=== PATIENT | female | born 1935 | race Caucasian/White ===

== ENCOUNTER 2018-09-30 08:11 | Observation (INO) | payer MEDICARE ==
[~2018-09-30] VITALS: Ht 157.5 cm; Wt 60.0 kg
[~2018-09-30 08:11] MED LIST: PROP10TA10 PO
[2018-09-30 09:20] LABS: BASOPHILS # (AUTO) 0.1 X10'3 (0-0.2); BASOPHILS % (AUTO) 1.2 % (0-1); EOSINOPHILS # (AUTO) 0.4 X10'3 (0-0.9); EOSINOPHILS % (AUTO) 5.2 % (0-6); HEMATOCRIT 42.4 % (35.0-45.0); LYMPHOCYTES # (AUTO) 1.3 X10'3 (1.1-4.8); LYMPHOCYTES % (AUTO) 19.1 % (21-51); MEAN CORPUSCULAR HEMOGLOBIN 29.3 PG (27.0-31.0); MEAN CORPUSCULAR HGB CONC 33.1 g/dL (33.0-36.5); MEAN CORPUSCULAR VOLUME 88.5 FL (78-98); MEAN PLATELET VOLUME 7.3 FL (7.4-10.4); MONOCYTES # (AUTO) 0.8 X10'3 (0-0.9); MONOCYTES % (AUTO) 12.2 % (2-12); NEUTROPHILS # (AUTO) 4.2 X10'3 (1.8-7.7); NEUTROPHILS % (AUTO) 62.3 % (42-75); PLATELET COUNT 299 X10'3 (140-440); RED BLOOD COUNT 4.79 X10'6 (4.20-5.60); RED CELL DISTRIBUTION WIDTH 13.8 % (11.5-14.5); WHITE BLOOD COUNT 6.8 X10'3 (4.5-11.0)
[2018-09-30 09:29] LABS: CLARITY,URINE CLEAR (Clear); COLOR,URINE STRAW (Yellow); GLUCOSE, URINE NEGATIVE (Neg); KETONES,URINE NEGATIVE (Neg); LEUKOCYTE ESTERASE ,URINE NEGATIVE (Neg); NITRITES, URINE NEGATIVE (Neg); OCCULT BLOOD,URINE TRACE-LYSED (Neg); PROTEIN,URINE NEGATIVE (Neg); UROBILINOGEN,URINE 0.2 E.U/dL (0.2-1.0)
[2018-09-30 09:29] LABS: ALANINE AMINOTRANSFERASE 20 U/L (12-78); ALBUMIN 3.7 G/DL (3.4-5.0); ALBUMIN/GLOBULIN RATIO 0.9 (1.1-1.5); ANION GAP 3 (8-16); ASPARTATE AMINO TRANSFERASE 17 U/L (10-37); BILIRUBIN,TOTAL 0.5 MG/DL (0.1-1.0); BLOOD UREA NITROGEN 10 MG/DL (7-18); CALCIUM 9.2 MG/DL (8.5-10.1); CHLORIDE 104 MMOL/L (99-107); CREATININE 0.91 MG/DL (0.40-0.90); GLUCOSE 101 MG/DL (70-104); POTASSIUM 3.6 MMOL/L (3.5-5.1); SODIUM 138 MMOL/L (135-145); TOTAL CARBON DIOXIDE 30.6 MMOL/L (24-32); TOTAL PROTEIN 7.8 G/DL (6.4-8.2); eGFR 59 ML/MIN
[2018-09-30 09:30] LABS: ALKALINE PHOSPHATASE 153 IU/L (46-116)
[2018-09-30 09:30] LABS: UA COLLECTION TYPE CLN CATCH MIDSTREAM
[2018-09-30 09:38] LABS: BACTERIA,URINE 1+ /HPF (Neg); SQUAMOUS EPITHELIAL CELL,UR FEW /LPF (FEW); WBC,URINE 0-4 /HPF (0-4)
[2018-09-30] MEDS ORDERED: enalaprilat dihydrate 2.5mg/2ml vial IV ONE (10:05)
[2018-09-30] MEDS ORDERED: hydrALAZINE 20mg/ml inj. IV ONE (10:55)
[2018-09-30] MEDS ORDERED: magnesium 4gm in 100ml NS 100 ML IV PRN (11:00)
[2018-09-30] MEDS ORDERED: potassium Cl 40MEQ/NS 500ml 500 ML IV PRN ×2 (11:00)
[2018-09-30] MEDS ORDERED: magnesium 2GM in 50ml NS 50 ML IV PRN (11:00)
[2018-09-30] MEDS ORDERED: ondansetron/PF 4mg/2ml inj IV PRN (11:00)
[2018-09-30] MEDS ORDERED: acetaminophen 325mg tablet PO PRN (11:00)
[2018-09-30] MEDS ORDERED: magnesium Cl slow-release 64mg tablet PO PRN (11:00)
[2018-09-30] MEDS ORDERED: potassium Cl 20 mEq SR tablet PO PRN ×2 (11:00)
--- NOTE | 2018-09-30 11:30 | NUR ---
Pt home medications sent to pharmacy
--- NOTE | 2018-09-30 13:26 | NUR ---
patient on bed,no reported discomfort.lunch ordered/faxed to dietary.
[2018-09-30] MEDS: lisinopril 5mg tablet PO SCH (13:32)
--- NOTE | 2018-09-30 18:24 | NUR ---
Attempted to call report. Surgical states that the nurse is in report, and she will return call as soon as she is able.
--- NOTE | 2018-09-30 18:30 | NUR ---
Received report from Nettie Rogers in ER pt arrived via gurney ambulated to bed, on RA in no apparent distress, oriented pt to room, will assess.
[2018-09-30 19:00] VITALS: BP 144/71
[2018-10-01 00:10] VITALS: BP 156/80
--- NOTE | 2018-10-01 06:25 | NUR ---
Patient in room [facility]. I have received report from TOMY Osullivan and had the opportunity to ask questions and assume patient care. Patient resting comfortably in no apparent distress on room air. Call light and items of frequent use in reach of patient.
--- NOTE | 2018-10-01 06:28 | NUR ---
Gave report to Sarah HUITRON with [facility] pt is awake and alert on RA in no apparent distress, call light and items of freq use within reach.
[2018-10-01 06:39] LABS: ALBUMIN 3.2 G/DL (3.4-5.0); ANION GAP 7 (8-16); BLOOD UREA NITROGEN 14 MG/DL (7-18); BUN/CREATININE RATIO 16.1 (6.6-38.0); CALCIUM 9.4 MG/DL (8.5-10.1); CHLORIDE 105 MMOL/L (99-107); CREATININE 0.87 MG/DL (0.40-0.90); GLUCOSE 109 MG/DL (70-104); MAGNESIUM 2.1 MG/DL (1.5-2.4); POTASSIUM 3.7 MMOL/L (3.5-5.1); SODIUM 138 MMOL/L (135-145); eGFR 62 ML/MIN
[2018-10-01 07:07] LABS: BASOPHILS # (AUTO) 0.1 X10'3 (0-0.2); EOSINOPHILS % (AUTO) 0.4 % (0-6); HEMATOCRIT 39.8 % (35.0-45.0); HEMOGLOBIN 13.3 g/dl (12.0-16.0); LYMPHOCYTES # (AUTO) 1.4 X10'3 (1.1-4.8); LYMPHOCYTES % (AUTO) 18.6 % (21-51); MEAN CORPUSCULAR HEMOGLOBIN 29.2 PG (27.0-31.0); MEAN CORPUSCULAR HGB CONC 33.4 g/dL (33.0-36.5); MEAN CORPUSCULAR VOLUME 87.5 FL (78-98); MEAN PLATELET VOLUME 7.5 FL (7.4-10.4); MONOCYTES # (AUTO) 0.8 X10'3 (0-0.9); MONOCYTES % (AUTO) 10.7 % (2-12); NEUTROPHILS # (AUTO) 5.2 X10'3 (1.8-7.7); NEUTROPHILS % (AUTO) 69.3 % (42-75); PLATELET COUNT 276 X10'3 (140-440); RED BLOOD COUNT 4.56 X10'6 (4.20-5.60); WHITE BLOOD COUNT 7.6 X10'3 (4.5-11.0)
[2018-10-01] MEDS ORDERED: K and/or MAG REPLACEMENT MC SCH (08:00)
[2018-10-01 08:13] VITALS: BP 119/67
[2018-10-01] MEDS: lisinopril 5mg tablet PO SCH (08:25)
[2018-10-01 11:00] VITALS: BP 143/62
[2018-10-01] MEDS ORDERED: LISI-642 PO (13:36)
[2018-10-01] MEDS ORDERED: PROP10TA10 PO (13:37)
--- NOTE | 2018-10-01 18:26 | NUR ---
Patient discharged at this time after Echo and Carotid ultrasound performed. Dr. Vergara did not want to discharge patient until those tests were complete. Patient discharged home via family member. Patient taken from unit via wheelchair with x1 staff. Patient alert, oriented and in no apparent distress at this time. New prescription called into [facility] on [address]. 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 Patient home meds that were brought in and stored in the pharmacy were picked up and given back to the patient. patient took all belongings with her upon discharge including home med and discharge instructions. patient given time for questions and answers and stated an understanding of the teaching. PIV removed with cannula intact. Tele monitor removed and returned to the Tele chambers on PCU.
== END 2018-10-01 18:30 | disposition home or self-care (01) ==
LOC: ER 08:11 → SUR 3N 10:58
PROVIDERS: ADMIT Internal Medicine; ATTEND Internal Medicine
DX: R55 Syncope and collapse (principal); I16.0 Hypertensive urgency; I47.1 Supraventricular tachycardia; I10 Essential (primary) hypertension; F41.0 Panic disorder [episodic paroxysmal anxiety]; M54.9 Dorsalgia, unspecified; G89.29 Other chronic pain; I48.91 Unspecified atrial fibrillation; M19.90 Unspecified osteoarthritis, unspecified site; I49.9 Cardiac arrhythmia, unspecified
CPT/HCPCS: 36415; 71045; 80048; 80053; 81001; 83735; 83880; 84484; 85025; 87070; 93005; 93306; 93880; 96374; 96375; 99284; G0378; J0360

== ENCOUNTER 2021-11-14 20:23 | Emergency (ER) | payer BC, MEDICAID ==
[~2021-11-14] VITALS: Ht 157.5 cm; Wt 53.6 kg
[~2021-11-14 20:23] MED LIST changes: +LISI-642 PO
[2021-11-15 00:38] VITALS: BP 186/81
== END 2021-11-15 00:41 | disposition home or self-care (01) ==
LOC: ER 20:24
DX: R42 Dizziness and giddiness (principal); R05.9 Cough, unspecified; I48.91 Unspecified atrial fibrillation; I10 Essential (primary) hypertension; M19.90 Unspecified osteoarthritis, unspecified site; G89.29 Other chronic pain; Z60.2 Problems related to living alone; Z88.1 Allergy status to other antibiotic agents; Z88.2 Allergy status to sulfonamides; Z88.0 Allergy status to penicillin; Z88.5 Allergy status to narcotic agent; Z79.899 Other long term (current) drug therapy
CPT/HCPCS: 93005; 99285

== ENCOUNTER 2022-08-11 03:24 | Emergency (ER) | payer BC, MEDICAID ==
[~2022-08-11] VITALS: Ht 157.5 cm; Wt 54.0 kg
[2022-08-11] MEDS ORDERED: PROP40TA72 PO (03:35)
[2022-08-11] MEDS ORDERED: amLODIPine 5mg tablet PO ONE ×2 (03:55→05:20)
[2022-08-11 04:41] LABS: BASOPHILS # (AUTO) 0.1 X10'3 (0-0.2); BASOPHILS % (AUTO) 1.2 % (0-1); EOSINOPHILS # (AUTO) 0.5 X10'3 (0-0.9); EOSINOPHILS % (AUTO) 7.7 % (0-6); HEMATOCRIT 40.7 % (35.0-45.0); HEMOGLOBIN 13.7 g/dl (12.0-16.0); LYMPHOCYTES # (AUTO) 1.7 X10'3 (1.1-4.8); LYMPHOCYTES % (AUTO) 25.3 % (21-51); MEAN CORPUSCULAR HEMOGLOBIN 29.4 PG (27.0-31.0); MEAN CORPUSCULAR HGB CONC 33.5 g/dL (33.0-36.5); MEAN CORPUSCULAR VOLUME 87.6 FL (78-98); MEAN PLATELET VOLUME 7.2 FL (7.4-10.4); MONOCYTES # (AUTO) 0.9 X10'3 (0-0.9); MONOCYTES % (AUTO) 13.5 % (2-12); NEUTROPHILS # (AUTO) 3.6 X10'3 (1.8-7.7); NEUTROPHILS % (AUTO) 52.3 % (42-75); PLATELET COUNT 317 X10'3 (140-440); RED BLOOD COUNT 4.65 X10'6 (4.20-5.60); RED CELL DISTRIBUTION WIDTH 14.1 % (11.5-14.5); WHITE BLOOD COUNT 6.8 X10'3 (4.5-11.0)
[2022-08-11 04:47] LABS: ALANINE AMINOTRANSFERASE 17 U/L (12-78); ALBUMIN 3.4 G/DL (3.4-5.0); ALBUMIN/GLOBULIN RATIO 0.8 (1.1-1.5); ALKALINE PHOSPHATASE 162 IU/L (46-116); ANION GAP 11 (8-16); ASPARTATE AMINO TRANSFERASE 20 U/L (10-37); BILIRUBIN,TOTAL 0.6 MG/DL (0.1-1.0); BLOOD UREA NITROGEN 13 MG/DL (7-18); BUN/CREATININE RATIO 14.1 (6.6-38.0); CALCIUM 9.2 MG/DL (8.5-10.1); CHLORIDE 104 MMOL/L (99-107); CREATININE 0.92 MG/DL (0.40-0.90); GLUCOSE 114 MG/DL (70-104); POTASSIUM 3.8 MMOL/L (3.5-5.1); SODIUM 141 MMOL/L (135-145); TOTAL PROTEIN 7.6 G/DL (6.4-8.2); eGFR 58 ML/MIN
[2022-08-11 04:54] LABS: MAGNESIUM 2.1 MG/DL (1.5-2.4)
[2022-08-11] MEDS ORDERED: AMLO5TAB16 PO (05:22)
[2022-08-11 06:06] VITALS: BP 190/86
--- NOTE | 2022-08-11 06:21 | NUR ---
Patient BP remains 190/86, provider advises this is okay for discharge. Will write dc instructions.
--- NOTE | 2022-08-11 06:34 | NUR ---
[facility] CONTACTED FOR TRANSPORT. ETA 20 MINS.
== END 2022-08-11 06:53 | disposition home or self-care (01) ==
LOC: ER 03:24
DX: I10 Essential (primary) hypertension (principal); R00.2 Palpitations; G89.29 Other chronic pain; M54.50 Low back pain, unspecified; Z91.041 Radiographic dye allergy status; Z88.0 Allergy status to penicillin; Z88.2 Allergy status to sulfonamides; Z88.4 Allergy status to anesthetic agent
CPT/HCPCS: 36415; 71045; 80053; 83735; 83880; 84484; 85025; 85610; 93005; 99285

== ENCOUNTER 2023-07-01 06:22 | Emergency (ER) | payer BC, MEDICAID ==
[~2023-07-01] VITALS: Ht 157.5 cm; Wt 65.0 kg
[~2023-07-01 06:22] MED LIST changes: +AMLO5TAB16 PO; -LISI-642 PO; -PROP10TA10 PO; +PROP40TA72 PO
[2023-07-01 06:33] VITALS: TEMP 98.4
[2023-07-01 08:25] LABS: BASOPHILS # (AUTO) 0.1 X10'3 (0-0.2); BASOPHILS % (AUTO) 1.4 % (0-1); EOSINOPHILS # (AUTO) 0.3 X10'3 (0-0.9); EOSINOPHILS % (AUTO) 4.3 % (0-6); HEMATOCRIT 42.5 % (35.0-45.0); LYMPHOCYTES # (AUTO) 1.1 X10'3 (1.1-4.8); LYMPHOCYTES % (AUTO) 18.6 % (21-51); MEAN CORPUSCULAR HEMOGLOBIN 28.8 PG (27.0-31.0); MEAN CORPUSCULAR HGB CONC 32.9 g/dL (33.0-36.5); MEAN CORPUSCULAR VOLUME 87.6 FL (78-98); MEAN PLATELET VOLUME 7.1 FL (7.4-10.4); MONOCYTES # (AUTO) 0.9 X10'3 (0-0.9); MONOCYTES % (AUTO) 14.2 % (2-12); NEUTROPHILS # (AUTO) 3.7 X10'3 (1.8-7.7); NEUTROPHILS % (AUTO) 61.5 % (42-75); PLATELET COUNT 314 X10'3 (140-440); RED BLOOD COUNT 4.86 X10'6 (4.20-5.60)
[2023-07-01 08:42] LABS: ALANINE AMINOTRANSFERASE 17 U/L (12-78); ALBUMIN 3.2 G/DL (3.4-5.0); ALBUMIN/GLOBULIN RATIO 0.6 (1.1-1.5); ALKALINE PHOSPHATASE 152 IU/L (46-116); ANION GAP 6 (8-16); ASPARTATE AMINO TRANSFERASE 21 U/L (10-37); BILIRUBIN,TOTAL 0.6 MG/DL (0.1-1.0); BLOOD UREA NITROGEN 15 MG/DL (7-18); BUN/CREATININE RATIO 13.5 (10.0-20.0); CALCIUM 9.5 MG/DL (8.5-10.1); CHLORIDE 102 MMOL/L (99-107); CREATININE 1.11 MG/DL (0.40-0.90); GLUCOSE 113 MG/DL (70-104); POTASSIUM 3.9 MMOL/L (3.5-5.1); SODIUM 138 MMOL/L (135-145); TOTAL CARBON DIOXIDE 30.3 MMOL/L (24-32); TOTAL PROTEIN 8.2 G/DL (6.4-8.2); eCRCL 29 ML/MIN; eGFR 47 ML/MIN
[2023-07-01 08:53] LABS: MAGNESIUM 2.2 MG/DL (1.5-2.4); PRO BRAIN NATRIURETIC PEPTIDE 669 PG/ML (0-450)
[2023-07-01 09:19] LABS: BILIRUBIN,URINE NEGATIVE (Neg); CLARITY,URINE SLIGHTLY CLOUDY (Clear); COLOR,URINE YELLOW (Yellow); GLUCOSE, URINE NEGATIVE (Neg); KETONES,URINE NEGATIVE (Neg); LEUKOCYTE ESTERASE ,URINE NEGATIVE (Neg); NITRITES, URINE NEGATIVE (Neg); OCCULT BLOOD,URINE NEGATIVE (Neg); PROTEIN,URINE NEGATIVE (Neg); UROBILINOGEN,URINE 0.2 E.U/dL (0.2-1.0)
[2023-07-01 09:23] LABS: UA COLLECTION TYPE CLN CATCH MIDSTREAM
[2023-07-01 09:24] LABS: MUCUS STRANDS MODERATE /LPF (Neg); SQUAMOUS EPITHELIAL CELL,UR MANY /LPF (FEW)
[2023-07-01 09:25] LABS: BACTERIA,URINE 1+ /HPF (Neg); RBC,URINE 0-2 /HPF (0-2); WBC,URINE 0-4 /HPF (0-4)
[2023-07-01 10:33] VITALS: BP 172/63; PULSE 63; RESP 18; O2SAT 97
== END 2023-07-01 10:30 | disposition home or self-care (01) ==
LOC: ER 06:23
DX: R00.2 Palpitations (principal); I48.91 Unspecified atrial fibrillation; I10 Essential (primary) hypertension; M19.90 Unspecified osteoarthritis, unspecified site; G89.29 Other chronic pain; Z79.899 Other long term (current) drug therapy; Z88.0 Allergy status to penicillin; Z88.1 Allergy status to other antibiotic agents; Z88.2 Allergy status to sulfonamides; Z88.5 Allergy status to narcotic agent; Z88.8 Allergy status to other drugs, medicaments and biological substances; Z91.041 Radiographic dye allergy status
CPT/HCPCS: 36415; 71045; 80053; 81001; 83735; 83880; 84484; 85025; 93005; 99285

== ENCOUNTER 2024-08-21 01:06 | Emergency (ER) | payer BC, MEDICAID ==
[~2024-08-21] VITALS: Ht 157.5 cm; Wt 49.8 kg
[2024-08-21] MEDS ORDERED: acetaminophen 325mg tablet PO ONE (03:00)
[2024-08-21] MEDS ORDERED: ibuprofen tablet 400 MG TABLET PO ONE (03:25)
[2024-08-21] MEDS: ibuprofen 200mg tablet PO ONE (03:51)
[2024-08-21 04:15] VITALS: BP 171/75; PULSE 61; RESP 16; TEMP 98.2; O2SAT 92
== END 2024-08-21 05:32 | disposition home or self-care (01) ==
LOC: ER 01:07
DX: S32.009A Unspecified fracture of unspecified lumbar vertebra, initial encounter for closed fracture (principal); M19.90 Unspecified osteoarthritis, unspecified site; I48.91 Unspecified atrial fibrillation; I10 Essential (primary) hypertension; Z88.5 Allergy status to narcotic agent; Z88.0 Allergy status to penicillin; Z88.1 Allergy status to other antibiotic agents; Z88.2 Allergy status to sulfonamides; Z88.6 Allergy status to analgesic agent; Z91.041 Radiographic dye allergy status; Z88.8 Allergy status to other drugs, medicaments and biological substances; W19.XXXA Unspecified fall, initial encounter; Y93.89 Activity, other specified; Y92.89 Other specified places as the place of occurrence of the external cause; Y99.8 Other external cause status
CPT/HCPCS: 99284